=== PATIENT | male | born 1970 | race Caucasian/White ===

== ENCOUNTER 2017-11-24 05:40 | Day surgery (SDC) | payer OTHER ==
[~2017-11-24] VITALS: Ht 180.3 cm; Wt 79.3 kg
[~2017-11-24 05:40] MED LIST: FLOMAX0.4 MG PO; GLUCOPHAGE500 MG PO; HYGROTON25 MG PO; LANTUS 3 M100 UNITS1 SC; LIPITOR40 MG PO; NOVOLOG PE100 UNITS/ SQ; VASOTEC20 MG PO
[2017-11-24 06:39] VITALS: BP 173/84
[2017-11-24 08:55] VITALS: BP 175/90
[2017-11-24 09:51] VITALS: BP 174/86
== END 2017-11-24 10:10 | disposition home or self-care (01) ==
LOC: SDC 05:40
PROVIDERS: Internal Medicine
DX: H35.342 Macular cyst, hole, or pseudohole, left eye (principal); E78.5 Hyperlipidemia, unspecified; I10 Essential (primary) hypertension; E11.9 Type 2 diabetes mellitus without complications; K21.9 Gastro-esophageal reflux disease without esophagitis; Z79.4 Long term (current) use of insulin
CPT/HCPCS: 82948; J0690; J2250; J2405; J3010; J3300